=== PATIENT | male | born 1975 | race Caucasian/White ===

== ENCOUNTER 2017-06-19 06:21 | Emergency (ER) | payer OTHER ==
[~2017-06-19] VITALS: Ht 165.1 cm; Wt 56.7 kg
[~2017-06-19 06:21] MED LIST: HYDR-971 PO; SULF1TAB24 PO
--- NOTE | 2017-06-19 06:25 | PHYS DOC ---
Past Medical History Past Medical History: No Pertinent History Past Surgical History: Other Additional Past Surgical Histo: SPLEEN Alcohol Use: None Drug Use: None Adult General Chief Complaint Chief Complaint: RIB PAIN HPI HPI Patient is a 42 year old male presenting to the emergency department for evaluation of left-sided rib/chest pain that woke him from his sleep at approximately 2:00 this morning. Patient says that he was in his usual state of health yesterday and he denies any recent illness cough fevers chills nausea vomiting or diaphoresis. He says that this left-sided rib pain hit him all of a sudden and he cannot take a deep breath or lay on that side as it is too painful. He says that this pain makes him feel short of breath and that he cannot take a deep breath is taking deep breaths make this much more painful. Patient has not taken anything for pain rather he called the ambulance as he cannot take the pain any longer. Review of Systems Review of Systems Constitutional: Denies fever or chills [] Eyes: Denies change in visual acuity, redness, or eye pain [] HENT: Denies nasal congestion or sore throat [] Respiratory: Denies cough. + shortness of breath [] Cardiovascular: + CP GI: Denies abdominal pain, nausea, vomiting, bloody stools or diarrhea [] : Denies dysuria or hematuria [] Musculoskeletal: Denies back pain or joint pain [] Integument: Denies rash or skin lesions [] Neurologic: Denies headache, focal weakness or sensory changes [] Current Medications Current Medications Current Medications Medications (Trade) Dose Ordered Sig/Santiago Start Time Stop Time Status Last Admin Dose Admin Acetaminophen/ Hydrocodone Bitart (Lortab 5/325) 2 tab 1X ONCE 06/19/17 07:45 06/19/17 07:46 DC 06/19/17 07:58 2 TAB Azithromycin (Zithromax) 500 mg 1X ONCE 06/19/17 07:45 06/19/17 07:46 DC 06/19/17 07:58 500 MG Ceftriaxone Sodium 2 gm/ Sodium Chloride 100 ml @ 200 mls/hr 1X ONCE 06/19/17 08:00 06/19/17 08:29 DC 06/19/17 07:58 200 MLS/HR Fentanyl Citrate (Fentanyl 2ml Vial) 75 mcg 1X ONCE 06/19/17 07:00 06/19/17 07:01 DC 06/19/17 07:02 75 MCG Ketorolac Tromethamine (Toradol) 30 mg 1X ONCE 06/19/17 07:00 06/19/17 07:01 DC 06/19/17 07:01 30 MG Sodium Chloride 1,000 ml @ 1,000 mls/hr 1X ONCE 06/19/17 08:00 06/19/17 08:59 DC 06/19/17 08:00 1,000 MLS/HR Allergies Allergies Allergies Coded Allergies Type Severity Reaction Last Updated Verified No Known Drug Allergies 02/25/14 No Physical Exam Physical Exam Constitutional: Well developed, well nourished, no acute distress, non-toxic appearance. [] HENT: Normocephalic, atraumatic, bilateral external ears normal, oropharynx moist, no oral exudates, nose normal. [] Eyes: PERRLA, EOMI, conjunctiva normal, no discharge. [] Neck: Normal range of motion, no tenderness, supple, no stridor. [] Cardiovascular:Heart rate regular rhythm, no murmur [] Lungs & Thorax: Bilateral breath sounds clear to auscultation. + L lower lateral ribs ttp. tenderness radiates to L posterior ribs. Patient is splinting. Abdomen: Bowel sounds normal, soft, no tenderness, no masses, no pulsatile masses. [] Skin: Warm, dry, no erythema, no rash. [] Back: No tenderness, no CVA tenderness. [] Extremities: No tenderness, no cyanosis, no clubbing, ROM intact, no edema. [] Neurologic: Alert and oriented X 3, normal motor function, normal sensory function, no focal deficits noted. [] Current Patient Data Vital Signs Vital Signs Date Time Temp Pulse Resp B/P (MAP) Pulse Ox O2 Delivery O2 Flow Rate FiO2 06/19/17 08:00 91 20 130/60 (83) 98 06/19/17 07:03 Room Air 06/19/17 06:38 99.4 99.4 Lab Values Laboratory Tests Test 06/19/17 06:50 White Blood Count 21.6 x10^3/uL (4.0-11.0) H Red Blood Count 4.88 x10^6/uL (4.30-5.70) Hemoglobin 15.1 g/dL (13.0-17.5) Hematocrit 45.2 % (39.0-53.0) Mean Corpuscular Volume 93 fL (79-100) Mean Corpuscular Hemoglobin 31 pg (25-35) Mean Corpuscular Hemoglobin Concent 33 g/dL (31-37) Red Cell Distribution Width 13.6 % (11.5-14.5) Platelet Count 303 x10^3/uL (140-400) Neutrophils (%) (Auto) 91 % (31-73) H Lymphocytes (%) (Auto) 3 % (24-48) L Monocytes (%) (Auto) 6 % (0-9) Eosinophils (%) (Auto) 0 % (0-3) Basophils (%) (Auto) 0 % (0-3) Neutrophils # (Auto) 19.6 x10^3uL (1.8-7.7) H Lymphocytes # (Auto) 0.7 x10^3/uL (1.0-4.8) L Monocytes # (Auto) 1.3 x10^3/uL (0.0-1.1) H Eosinophils # (Auto) 0.0 x10^3/uL (0.0-0.7) Basophils # (Auto) 0.0 x10^3/uL (0.0-0.2) Segmented Neutrophils % 60 % (35-66) Band Neutrophils % 10 % (0-9) H Lymphocytes % 4 % (24-48) L Monocytes % 26 % (0-10) H Platelet Estimate Adequate (ADEQUATE) Prothrombin Time 14.3 SEC (11.7-14.0) H Prothrombin Time INR 1.2 (0.8-1.1) H PTT 36 SEC (24-38) D-Dimer (Nena) 0.27 ug/mlFEU (0.00-0.50) Sodium Level 136 mmol/L (136-145) Potassium Level 4.2 mmol/L (3.5-5.1) Chloride Level 100 mmol/L (98-107) Carbon Dioxide Level 27 mmol/L (21-32) Anion Gap 9 (6-14) Blood Urea Nitrogen 10 mg/dL (8-26) Creatinine 0.8 mg/dL (0.7-1.3) Estimated GFR (Cockcroft-Gault) 106.0 BUN/Creatinine Ratio 13 (6-20) Glucose Level 107 mg/dL (70-99) H Calcium Level 9.4 mg/dL (8.5-10.1) Magnesium Level 1.7 mg/dL (1.8-2.4) L Total Bilirubin 1.0 mg/dL (0.2-1.0) Aspartate Amino Transferase (AST) 17 U/L (15-37) Alanine Aminotransferase (ALT) 21 U/L (16-63) Alkaline Phosphatase 73 U/L (46-116) Troponin I Quantitative < 0.017 ng/mL (0.000-0.055) VG-Jzx-L-Type Natriuretic Peptide 163 pg/mL (0-124) H Total Protein 6.8 g/dL (6.4-8.2) Albumin 3.9 g/dL (3.4-5.0) Albumin/Globulin Ratio 1.3 (1.0-1.7) Lipase 68 U/L (73-393) L Laboratory Tests 06/19/17 06:50 Laboratory Tests 06/19/17 06:50 EKG EKG Sinus rhythm at 94 beats per minutes with normal axis no obvious ST elevation or depression and normal T waves Radiology/Procedures Radiology/Procedures Indication left rib pain. A single view the chest was obtained. Comparison is made to an examination 02/25/2014. The heart and pulmonary vessels appear normal. There is a parenchymal opacity in the lingula or left lower lobe compatible with atelectasis or pneumonia. There is no significant pleural fluid. There is no pneumothorax. The visualized bony structures appear grossly intact. There is a probable granuloma in the left lower lobe. IMPRESSION: Opacity in the left lung compatible with atelectasis or pneumonia DICTATED and SIGNED BY: ELMIRA MOCTEZUMA MD DATE: 06/19/17 0722 Course & Med Decision Making Course & Med Decision Making Patient's pain seems most consistent with costochondritis as he has exquisite tenderness to palpation and he may have some pleurisy as well as she says that he can barely take a deep breath. He is tachycardic but has normal motion saturation. Given the called the ambulance with the amount of pain he is having he will get labs including d-dimer as well as a chest x-ray treat with Toradol and fentanyl and then be reassessed. Chest x-ray shows a left lower lobe pneumonia and he has leukocytosis. I went back and spoke to the patient again and told him the diagnosis of pneumonia and then he started telling me that he is in fact having a cough with greenish productive sputum despite his earlier claims that he had no cough. Patient did start coughing in the room on reexamination as well. His oxygen saturation is normal at 97-98% but he is slightly tachycardic in the 100 range. Patient has a curb 65 score of 0. Patient says that his pain is much improved after the Toradol and fentanyl and he would much rather be treated as an outpatient. I think that this is reasonable given he is young and fairly healthy. I told him reasons to return including worsening pain shortness of breath or other general concerns. Patient aware and agreeable with plan for discharge and verbalized understanding of the need for short-term follow-up in the strict ED return precautions discussed as above Dragon Disclaimer Dragon Disclaimer This electronic medical record was generated, in whole or in part, using a voice recognition dictation system. Departure Departure Impression: Primary Impression: Pneumonia Additional Impression: Leukocytosis Disposition: 01 HOME, SELF-CARE Condition: STABLE Referrals: MELIDA KIMBROUGH APRN (PCP) Patient Instructions: Pneumonia, Adult Additional Instructions: TAKE 400MG OF IBUPROFEN EVERY 6 HOURS AND THE NORCO FOR BREAKTHROUGH PAIN. IF YOU START HAVING WORSENING PAIN, FEVERS, SHORTNESS OF BREATH, OR OTHER GENERAL CONCERNS PLEASE COME BACK TO THE ED IMMEDIATELY. THANK YOU! Scripts Hydrocodone/Apap 5-325 (NORCO 5-325 TABLET) 1 Each Tablet 1 TAB PO PRN Q6HRS Y for PAIN, #20 TAB 0 Refills Prov: MERRICK TAYLOR DO 06/19/17 Azithromycin (ZITHROMAX) 250 Mg Tablet 250 MG PO DAILY for ANTI-BIOTIC, #4 TAB 0 Refills Prov: MERRICK TAYLOR DO 06/19/17 Problem Qualifiers Primary Impression: Pneumonia Pneumonia type: due to unspecified organism Laterality: left Lung location : lower lobe of lung Qualified Codes: J18.1 - Lobar pneumonia, unspecified organism MERRICK TAYLOR DO Jun 19, 2017 06:25
[2017-06-19] MEDS ORDERED: KETOROLAC 30 MG/ML INJ. IV ONE (07:00)
[2017-06-19] MEDS ORDERED: fentaNYL PF VIAL 100 MCG/2 ML VIAL IV ONE (07:00)
--- NOTE | 2017-06-19 07:05 | EKG ---
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
[2017-06-19 07:10] LABS: CALCIUM 9.4 mg/dL (8.5-10.1); CREATININE 0.8 mg/dL (0.7-1.3); POTASSIUM 4.2 mmol/L (3.5-5.1)
[2017-06-19 07:12] LABS: INR 1.2 (0.8-1.1); PROTHROMBIN TIME PATIENT 14.3 SEC (11.7-14.0)
[2017-06-19 07:15] LABS: ALBUMIN 3.9 g/dL (3.4-5.0); ALBUMIN/GLOBULIN RATIO 1.3 (1.0-1.7); MAGNESIUM 1.7 mg/dL (1.8-2.4); TOTAL PROTEIN 6.8 g/dL (6.4-8.2)
[2017-06-19 07:19] LABS: BASO % 0 % (0-3); EOS % 0 % (0-3); HEMATOCRIT 45.2 % (39.0-53.0); HEMOGLOBIN 15.1 g/dL (13.0-17.5); LYMPH # 0.7 x10^3/uL (1.0-4.8); LYMPH % 3 % (24-48); MEAN CORPUSCULAR HEMOGLOBIN 31 pg (25-35); MEAN CORPUSCULAR HGB CONC 33 g/dL (31-37); MEAN CORPUSCULAR VOLUME 93 fL (79-100); MONO % 6 % (0-9); NEUT % 91 % (31-73); PLATELET COUNT 303 x10^3/uL (140-400); RED BLOOD COUNT 4.88 x10^6/uL (4.30-5.70); RED CELL DISTRIBUTION WIDTH 13.6 % (11.5-14.5); WHITE BLOOD COUNT 21.6 x10^3/uL (4.0-11.0)
--- NOTE | 2017-06-19 07:28 | RAD ---
Indication left rib pain. A single view the chest was obtained. Comparison is made to an examination 02/25/2014. The heart and pulmonary vessels appear normal. There is a parenchymal opacity in the lingula or left lower lobe compatible with atelectasis or pneumonia. There is no significant pleural fluid. There is no pneumothorax. The visualized bony structures appear grossly intact. There is a probable granuloma in the left lower lobe. IMPRESSION: Opacity in the left lung compatible with atelectasis or pneumonia
[2017-06-19] MEDS ORDERED: HYDROcodone/APAP 5/325MG 1 TAB TABLET PO ONE (07:45)
[2017-06-19] MEDS ORDERED: AZITHROMYCIN 250 MG TABLET. PO ONE (07:45)
[2017-06-19 08:00] VITALS: BP 130/60
[2017-06-19] MEDS ORDERED: IV NORMAL SALINE 1000ML BAG 1,000 ML IV ONE (08:00)
[2017-06-19] MEDS ORDERED: HYDR-971 PO (08:05)
[2017-06-19] MEDS ORDERED: AZIT250T PO (08:05)
[2017-06-19 11:16] LABS: PLT ESTIMATE ADEQUATE (ADEQUATE)
== END 2017-06-19 09:16 | disposition home or self-care (01) ==
LOC: ER 06:21
DX: J18.9 Pneumonia, unspecified organism (principal); D72.829 Elevated white blood cell count, unspecified
CPT/HCPCS: 36415; 71010; 80053; 83690; 83735; 83880; 84484; 85007; 85025; 85379; 85610; 85730; 93005; 96365; 96375; 99285; J0696; J1885; J3010; J7030; Q0144